=== PATIENT | male | born 1965 | race Caucasian/White ===

== ENCOUNTER → 2020-07-23 | Outpatient (CLI) | payer OTHER | LOC: M LABSMTC 13:20 | PROVIDERS: ATTEND Pediatrics | DX: Z20.828 Contact with and (suspected) exposure to other viral communicable diseases (principal) ==

== ENCOUNTER → 2022-10-28 | Outpatient (CLI) | payer BC ==
[~2022-10-28] MED LIST: ASPI81TA26; ATOR1TAB19; ATOR40TA75; CLOP75TA2; COMF1MIS25 SC; CVS2500C PO; NOXI1TAB PO; OMEG10002 PO; VITA1CAP25 PO; VITMTA PO; [UNRECOGNIZED DRUG - CODE] SC; [UNRECOGNIZED DRUG - CODE] SC
== END ==
LOC: M RAD 08:49
PROVIDERS: ATTEND Specialist
DX: R74.8 Abnormal levels of other serum enzymes (principal); D47.1 Chronic myeloproliferative disease; R14.0 Abdominal distension (gaseous)